=== PATIENT | male | born 1965 | race Caucasian/White ===

== ENCOUNTER 2021-06-01 07:07 | Day surgery (SDC) | payer OTHER ==
[~2021-06-01 07:07] MED LIST: Lactated Ringers 1,000 ML IV SCH
[2021-06-01] MEDS ORDERED: fentaNYL 100 MCG/2 ML SDV ONE (07:57)
[2021-06-01] MEDS ORDERED: Propofol 200 MG/20 ML SDV ONE ×3 (07:57→09:20)
[2021-06-01 10:03] VITALS: BP 139/78; PULSE 62
== END 2021-06-01 10:45 | disposition home or self-care (01) ==
LOC: VM.SDS 07:07
PROVIDERS: ATTEND Family Medicine
DX: Z12.11 Encounter for screening for malignant neoplasm of colon (principal); D12.6 Benign neoplasm of colon, unspecified; K57.30 Diverticulosis of large intestine without perforation or abscess without bleeding; G47.33 Obstructive sleep apnea (adult) (pediatric); E11.9 Type 2 diabetes mellitus without complications; E66.9 Obesity, unspecified; Z98.890 Other specified postprocedural states; Z79.84 Long term (current) use of oral hypoglycemic drugs; Z90.49 Acquired absence of other specified parts of digestive tract
CPT/HCPCS: 00811; 82947; J2704; J3010; J7120